=== PATIENT | female | born 1975 | race Caucasian/White ===

== ENCOUNTER 2017-03-26 14:42 | Emergency (ER) | payer MEDICAID ==
[~2017-03-26] VITALS: Ht 162.6 cm; Wt 76.5 kg
[~2017-03-26 14:42] MED LIST: CETI10CA PO; ELIM TOP; HC30CR25 TOP; LD2VS100B MM; MUPI22OI29 TOP; NAPR-688 PO; PRED20TA PO
[2017-03-26 14:43] VITALS: Ht 162.6 cm; Wt 76.5 kg
[2017-03-26] MEDS ORDERED: ONDANSETRON 4 MG INJ IV STA (17:07)
[2017-03-26] MEDS ORDERED: SOD CHLORIDE 0.9% 1,000 ML IV STA (17:07)
[2017-03-26] MEDS ORDERED: morphine 2 MG INJ IV STA (17:07)
--- NOTE | 2017-03-26 17:42 | ERD ---
ER Documentation Chief Complaint Date/Time DATE: 03/26/17 TIME: 17:39 Chief Complaint 10/10 head pain x today HPI This is a very pleasant 41-year-old female with no past medical history that presents to the emergency department complaining of a bilateral pulsating frontal headache that occurred 2 hours prior to arrival. She also indicates that the headache began to become a bandlike sensation and contrary to the triage note the patient states this is not the worst headache of her life. She did indicate that the pain was 8 out of 10 in intensity with associated symptoms of dizziness and the patient became pale according to coworkers. She stated she sat down and the dizziness resolved but the headache persisted. She denies any neck pain. She has had no fevers or shaking or chills. She denies any blunt or penetrating trauma to her head chest or abdomen. She indicates roughly 1 month ago she had a similar headache. She denies any recent travel. She took Motrin and her headache improved to 2 out of 10 in intensity. She does not take any medications that she has no past medical history denies any past surgical history. ROS All systems reviewed and are negative except as per history of present illness. Medications Home Meds Discontinued Scripts Naproxen* (Naproxen*) 500 Mg Tablet, 500 MG PO BID Y for PAIN for 7 Days, TAB Prov:CHENTE [employer] 04/13/16 Lidocaine Viscous 2%* (Lidocaine Viscous 2%*) 100 Ml Soln, 15 ML MM BID for 7 Days, ML Prov:CHENTE [employer]ERS [employer] 04/13/16 Prednisone* (Prednisone*) 20 Mg Tab, 40 MG PO DAILY for 5 Days, TAB Prov:DAFNE FRANK NP 11/28/15 Hydrocortisone* Topical (Hydrocortisone* Topical) 2.5%-28.3 Gm Cream..g., 1 APPLIC TOP BID for 5 Days, TUB Prov:DAFNE FRANK NP 11/28/15 Hydrocortisone* Topical (Hydrocortisone* Topical) 2.5%-28.3 Gm Cream..g., 1 APPLIC TOP BID, #1 TUB Prov:NATHALIE BALDERAS MD 07/18/15 Cetirizine Hcl* (Zyrtec*) 10 Mg Capsule, 10 MG PO DAILY, #20 TAB.CHEW Prov:NATHALIE BALDERAS MD 07/18/15 Prednisone* (Prednisone*) 20 Mg Tab, 40 MG PO DAILY for 5 Days, TAB Prov:NATHALIE BALDERAS MD 07/18/15 Mupirocin (BACTROBAN 2% OINT) 1 Applic Oint, 10 APPLIC TOP TID for 7 Days Prov:NATHALIE URIARTE PA-C 07/16/15 Permethrin* (Elimite*) 5% Cr, 1 APPLIC TOP ONCE, #1 TUB apply to lips tid Prov:NATHALIE URIARTE PA-C 07/16/15 Allergies Allergies: Coded Allergies: No Known Allergy (Unverified , 03/26/17) PMhx/Soc History of Surgery: Yes (C SECTION X 2) Anesthesia Reaction: No Hx Neurological Disorder: No Hx Respiratory Disorders: No Hx Cardiac Disorders: No Hx Psychiatric Problems: No Hx Miscellaneous Medical Probl: No Hx Alcohol Use: No Hx Substance Use: No Hx Tobacco Use: No Smoking Status: Current every day smoker Physical Exam Vitals Vital Signs Date Time Temp Pulse Resp B/P Pulse Ox O2 Delivery O2 Flow Rate FiO2 03/26/17 14:43 98.5 86 20 174/101 98 Physical Exam Constitutional:Well-developed. Well-nourished. HEENT:Normocephalic. Atraumatic.Pupils were equal round reactive to light. Moist mucous membranes.No tonsillar exudates. Funduscopy exam showed sharp optic disc bilaterally venous pulsations are present. No nasoseptal hematoma. No hemotympanum Neck: No nuchal rigidity. No lymphadenopathy. No posterior cervical spine tenderness or step-offs. Respiratory: Not using accessory muscles of respiration.Lungs were clear to auscultation bilaterally. No rhonchi. No rales. No wheezing. Cardiovascular: Regular rate regular rhythm.No murmurs. No rubs were appreciated.S1, S2 normal. Distal pulses are palpable 2+ bilaterally. GI: Abdomen was soft. Nontender. Non Distended. No pulsatile abdominal masses or bruits. No rebound. No guarding. Bowel sounds were present and normal. Muscle skeletal: Full range of motion of both the upper and lower extremities bilaterally.Normal muscle tone.No assymetrical calf tenderness or swelling. Skin: No petechia, no purpura. No lesions on the palms or the soles of the feet. No maculopapular rash. NEURO: Patient was alert, awake, orientated x3.No facial droop. Gait observed and normal with no ataxia.Speech had regular rate and rhythm. No focal neurological deficits. Result Diagram: 03/26/17172903/26/170 Results 24 hrs Laboratory Tests Test 03/26/17 17:30 White Blood Count 8.010^3/ul Red Blood Count 4.6710^6/ul Hemoglobin 15.0g/dl Hematocrit 42.8% Mean Corpuscular Volume 91.6fl Mean Corpuscular Hemoglobin 32.1pg Mean Corpuscular Hemoglobin Concent 35.0g/dl Red Cell Distribution Width 12.1% Platelet Count 68537^3/UL Mean Platelet Volume 10.7fl Neutrophils % 63.7% Lymphocytes % 26.2% Monocytes % 8.1% Eosinophils % 1.3% Basophils % 0.4% Nucleated Red Blood Cells % 0.0/100WBC Neutrophils # 5.110^3/ul Lymphocytes # 2.110^3/ul Monocytes # 0.710^3/ul Eosinophils # 0.110^3/ul Basophils # 0.010^3/ul Nucleated Red Blood Cells # 0.010^3/ul Prothrombin Time 11.6Sec Prothrombin Time Ratio 0.9 INR International Normalized Ratio 0.85 Activated Partial Thromboplast Time 28.6Sec Sodium Level 144mmol/L Potassium Level 4.2mmol/L Chloride Level 100mmol/L Carbon Dioxide Level 27mmol/L Anion Gap 21 Blood Urea Nitrogen 9mg/dl Creatinine 0.54mg/dl Glucose Level 100mg/dl Calcium Level 10.1mg/dl Total Bilirubin 0.1mg/dl Direct Bilirubin 0.00mg/dl Indirect Bilirubin 0.1mg/dl Aspartate Amino Transf (AST/SGOT) 36IU/L Alanine Aminotransferase (ALT/SGPT) 51IU/L Alkaline Phosphatase 80IU/L Troponin I < 0.012ng/ml Total Protein 8.4g/dl Albumin 4.7g/dl Globulin 3.70g/dl Albumin/Globulin Ratio 1.27 Current Medications Medications (Trade) Dose Ordered Sig/Kamilla Route PRN Reason Start Time Stop Time Status Last Admin Dose Admin Sodium Chloride (NS) 1,000 ml @ 1,000 mls/hr Q1H STAT IV 03/26/17 17:07 03/26/17 18:06 DC 03/26/17 17:35 Morphine Sulfate (morphine) 2 mg ONCE STAT IV 03/26/17 17:07 03/26/17 17:09 DC 03/26/17 17:36 Ondansetron HCl (Zofran Inj) 4 mg ONCE STAT IV 03/26/17 17:07 03/26/17 17:09 DC 03/26/17 17:35 Procedures/MDM The patient presented to the emergency department with an acute single headache that presented within hours of onset my differential diagnosis included but was not limited to meningitis, SAH, intracerebral hemorrhage, hypertensive encephalopathy, cranial artery dissection, cerebral venous sinus thrombosis, traumatic, acute sinusitis. The patient has no ocular symptoms to suggest temporal neuritis, acute narrow-angle glaucoma or pituitary apoplexy. The patient did not appear to have a toxic or metabolic etiology such as fever, hypoglycemia, high-altitude disease or carbon monoxide poisoning. This was not the patients worse headache of their life. The patient had a complete neurologic and fundoscopic exam performed by myself that was normal with no focal neurological deficits or retinal hemorrhage. The patient stated this headache was not severe or distinct from other headaches and the history with the physical exam findings did not likely suggest SAH. Therefore, I did not feel it was clinically necessary to perform a lumbar puncture and CSF analysis. CT scan of the head showed no acute intracerebral hemorrhage mass-effect or midline shift. I did feel the patient's symptoms could be a result of a migraine versus a tension-like headache. She did receive intravenous morphine and Zofran and IV fluids with complete resolution of her headache. This patient also presented to the emergency department with severely elevated blood pressure of 174/101. My differential diagnosis included but was not limited to conditions that could end-organ damage such as acute coronary syndrome, acute pulmonary edema, aortic dissection, subarachnoid hemorrhage, intracerebral hemorrhage, cerebral infarction, withdrawal syndromes from beta blockers, or states of catecholamine excess such as pheochromocytoma or drug intoxication. Ancillary lab work was obtained. There was no elevation in the BUN and creatinine to suggest acute renal failure. Electrolytes were normal. Cardiac enzyme was normal and the 12 lead EKG showed no acute ischemic changes or left ventricular hypertrophy. Given that the patient had an absence of cerebral, ocular, cardiac or renal damage the hypertensive urgency was treated with oral agents in the emergency room with improvement of the patient's blood pressure. The patient likely appeared to be complaint with primary care physician and will follow up with their PCP in the next 24-48 hours. They were instructed to return to the emergency department at anytime if there is any worsening of their condition such as development of chest pain or a headache. They were instructed to resume previous medication regimen or initiate a suitable medication regimen under care of the PCP to enable proper monitoring for drug reactions. The patient was also informed on the adverse side effects and adverse drug interactions of the medications prescribed to them by myself. The patient gave informed consent to the prescription of the new medication. Departure Diagnosis: Primary Impression: Headache Headache type: tension-type Headache chronicity pattern: acute headache Intractability: not intractable Qualified Code: G44.209 - Acute non intractable tension-type headache Additional Impressions: Dizziness Accelerated hypertension Condition: Fair JENNA VILLAGOMEZ Mar 26, 2017 17:42
[2017-03-26 17:43] LABS: BASOPHILS % 0.4 % (0.0-2.0); EOSINOPHILS # 0.1 10^3/ul (0.0-0.5); EOSINOPHILS % 1.3 % (0.0-7.0); HEMATOCRIT 42.8 % (37.0-47.0); LYMPHOCYTES # 2.1 10^3/ul (0.8-2.9); LYMPHOCYTES % 26.2 % (15.0-51.0); MEAN CORPUSCULAR HEMOGLOBIN 32.1 pg (29.0-33.0); MEAN CORPUSCULAR VOLUME 91.6 fl (82.0-101.0); MEAN PLATELET VOLUME 10.7 fl (7.4-10.4); MONOCYTE # 0.7 10^3/ul (0.3-0.9); MONOCYTES % 8.1 % (0.0-11.0); NEUTROPHIL # 5.1 10^3/ul (1.6-7.5); NEUTROPHILS % 63.7 % (39.0-77.0); PLATELET COUNT 320 10^3/UL (140-415); RED BLOOD COUNT 4.67 10^6/ul (4.20-5.40); RED CELL DISTRIBUTION WIDTH 12.1 % (11.5-14.5)
[2017-03-26 17:59] LABS: INR 0.85; PROTIME 11.6 Sec (12.2-14.2); PT RATIO 0.9
[2017-03-26 18:00] LABS: PARTIAL THROMBOPLASTIN TIME 28.6 Sec (25.0-35.0)
[2017-03-26 18:03] LABS: ALANINE AMINOTRANSFERASE 51 IU/L (13-69); ALBUMIN 4.7 g/dl (3.3-4.9); ALBUMIN/GLOBULIN RATIO 1.27; ALKALINE PHOSPHATASE 80 IU/L (42-121); ANION GAP 21 (8-16); ASPARTATE AMINO TRANSFERASE 36 IU/L (15-46); BILIRUBIN,INDIRECT 0.1 mg/dl (0-1.1); BILIRUBIN,TOTAL 0.1 mg/dl (0.2-1.3); BLOOD UREA NITROGEN 9 mg/dl (7-20); CALCIUM 10.1 mg/dl (8.4-10.2); CARBON DIOXIDE 27 mmol/L (21-31); CHLORIDE 100 mmol/L (97-110); CREATININE 0.54 mg/dl (0.44-1.00); GLUCOSE 100 mg/dl (70-220); POTASSIUM 4.2 mmol/L (3.5-5.1); SODIUM 144 mmol/L (135-144); TOTAL PROTEIN 8.4 g/dl (6.1-8.1)
[2017-03-26 18:18] LABS: TROPONIN-I < 0.012 ng/ml (0.00-0.12)
--- NOTE | 2017-03-26 18:35 | RADRPT ---
PROCEDURE: CT Head without contrast. CLINICAL INDICATION: Headaches with near-syncope TECHNIQUE: The study was performed utilizing a GE 64-slice multidetector CT scanner. Direct spiral axial CT images of the brain were obtained from the vertex to the skull base without contrast. Cor onal and sagittal reformat images are provided. The CTDI vol is 44.81 mGy and the DLP is 630.2 mGy- cm. The images were reviewed on a PACS workstation. COMPARISON: No prior studies are available for comparison. FINDINGS: The ventricles and cortical sulci are within normal limits. The solis-white matter differentiation i s maintained. No intra or extra-axial fluid collection or mass effect or shift in the midline struc tures is seen. The visualized paranasal sinuses, mastoid air cells, orbits, and calvarium are unrem arkable. IMPRESSION: No acute intracranial pathology. RPTAT: HPNM Physician Ofelia Date Time Electronically viewed and signed by Physician Ofelia on 03/26/2017 18:35 /
[2017-03-26] MEDS ORDERED: IBUP800T25 PO (18:38)
[2017-03-26 20:14] VITALS: BP 168/92; PULSE 70; RESP 18; TEMP 98.1
== END 2017-03-26 20:15 | disposition home or self-care (01) ==
LOC: E/R 14:42
DX: G44.209 Tension-type headache, unspecified, not intractable (principal); R42 Dizziness and giddiness; I10 Essential (primary) hypertension; F17.210 Nicotine dependence, cigarettes, uncomplicated; R55 Syncope and collapse
CPT/HCPCS: 70450; 80053; 84484; 85025; 85610; 85730; 93005; 96374; 96375; J2270; J2405; J7030; Z7502

== ENCOUNTER 2018-12-07 09:20 | Emergency (ER) | payer MEDICAID ==
[~2018-12-07] VITALS: Ht 160 cm; Wt 78.2 kg
[~2018-12-07 09:20] MED LIST changes: -CETI10CA PO; -ELIM TOP; -HC30CR25 TOP; +IBUP800T48 PO; -LD2VS100B MM; -MUPI22OI29 TOP; -NAPR-688 PO; -PRED20TA PO
[2018-12-07 09:22] VITALS: BP 144/69; PULSE 79; RESP 18; Ht 160 cm; Wt 78.2 kg
--- NOTE | 2018-12-07 10:20 | ERD ---
ER Documentation Chief Complaint Chief Complaint sorethroat x4 wks, speaking full sentences. HPI On 43-year-old female with no past medical or surgical history who presents with 4-week complaint of sore throat. She denies associated fever, cough,rhinorrhea, recent upper respiratory infection, shortness of breath, dyspnea, change in voice. Has taken Tylenol as recently as yesterday for pain. She is most concerned about this pain to her throat. He does suffer from allergies but has not taking any [id number] medications for those symptoms previously. She otherwise is without complaint. At time of evaluation patient is nontoxic- appearing with stable triage vital signs with no documented fevers. ROS All systems reviewed and are negative except as per history of present illness. Medications Home Meds Active Scripts Loratadine/Pseudoephedrine (CLARITIN-D 24 HOUR TABLET) 1 Each Tab.er.24h, 1 TAB PO DAILY, #30 TAB Prov:JEAN MARIE MITCHELL PA-C 12/07/18 Penicillin V Potassium* (Penicillin V K*) 500 Mg Tab, 500 MG PO QID for 10 Days, TAB Prov:JEUDINENAVEENHO PA-C 12/07/18 Ibuprofen* (Motrin*) 600 Mg Tab, 600 MG PO Q6H PRN for PAIN AND OR ELEVATED TEMP, #30 TAB Prov:JEUDINE,GETHO PA-C 12/07/18 Ibuprofen* (Motrin*) 800 Mg Tab, 800 MG PO Q6H PRN for PAIN AND OR ELEVATED TEMP, #30 TAB Prov:JENNA VILLAGOMEZ MD 03/26/17 Allergies Allergies: Coded Allergies: No Known Allergy (Unverified , 03/26/17) PMhx/Soc History of Surgery: Yes (C SECTION X 2) Anesthesia Reaction: No Hx Neurological Disorder: No Hx Respiratory Disorders: No Hx Cardiac Disorders: No Hx Psychiatric Problems: No Hx Miscellaneous Medical Probl: No Hx Alcohol Use: No Hx Substance Use: No Hx Tobacco Use: No Smoking Status: Never smoker FmHx Family History: No diabetes, No coronary disease, No other Physical Exam Vitals Vital Signs Date Temp Pulse Resp B/P (MAP) Pulse Ox O2 O2 Flow FiO2 Time Delivery Rate 12/07/18 98.5 79 18 144/69 99 09:22 (94) Physical Exam I have reviewed the triage vital signs. Const: Well nourished, well developed, appears stated age Eyes: PERRL, no conjunctival injection HENT: NCAT, Neck supple without meningismus, mild erythema to throat, no exudates, mild swelling, speaking in full sentences CV: RRR, Warm, well-perfused extremities RESP: CTAB, Unlabored respiratory effort GI: soft, non-tender, non-distended, no masses MSK: No gross deformities appreciated Skin: Warm, dry. No rashes Neuro: grossly non focal Psych: Appropriate mood and affect. Procedures/MDM 43-year-old female who presents with sore throat for 4 weeks. She has mild erythema and edema of the throat with very unconcern exam otherwise. No red flag symptoms such as muffled voice or tonsillar exudates. I doubt any emergent cause of her symptoms. Joint decision making made with patient regarding use of antibiotics in such a mild case. She insisted on antibiotic course given the length of her symptoms. I have elected to treat her presumed strep pharyngitis. No history of immunocompromise. Nontoxic appearance. Patient euvolemic with no trismus and no airway compromise. Able to tolerate PO. Unlikely [employer], RPA, Ludwigs, epiglottitis, acute HIV, or EBV. Plan to DC home with Abx with prompt outpatient PCP follow up; return precautions discussed. Plan: Penicillin Claritin Ibuprofen PMD follow up Disposition Departure Condition: Stable JEAN MARIE MITCHELL PA-C Dec 07, 2018 10:20
[2018-12-07] MEDS ORDERED: IBUP-1542 PO (10:22)
[2018-12-07] MEDS ORDERED: LORA-777 PO (10:29)
[2018-12-07] MEDS ORDERED: PENI500T PO (10:29)
== END 2018-12-07 10:41 | disposition home or self-care (01) ==
LOC: FTE 09:20
DX: J02.9 Acute pharyngitis, unspecified (principal)
CPT/HCPCS: 99283

== ENCOUNTER 2019-06-16 08:28 | Emergency (ER) | payer MEDICAID ==
[~2019-06-16] VITALS: Ht 157.5 cm; Wt 78.0 kg
[~2019-06-16 08:28] MED LIST changes: +FAMO-96 PO; +IBUP-1542 PO; +LORA-777 PO; +NAPR-985 PO; +PENI500T PO
[2019-06-16 08:33] VITALS: BP 130/76; PULSE 76; RESP 18; Ht 157.5 cm; Wt 78.0 kg
== END 2019-06-16 09:26 | disposition home or self-care (01) ==
LOC: FTE 08:28
DX: J02.9 Acute pharyngitis, unspecified (principal)
CPT/HCPCS: 99282